=== PATIENT | male | born 1950 | race Hispanic/Latino ===

== ENCOUNTER 2018-01-25 03:22 | Emergency (ER) | payer BC ==
[~2018-01-25] VITALS: Ht 167.6 cm; Wt 81.6 kg
[~2018-01-25 03:22] MED LIST: AMLODIPINE BESYL5 MG PO; LOSARTAN POTAS100 MG PO
[2018-01-25] MEDS ORDERED: ONDANSETRON HCL INJ 2 MG/ML VIAL IV STA (04:02)
[2018-01-25] MEDS ORDERED: KETOROLAC TROMETHAMINE 30 MG/ML VIAL IV STA (04:02)
[2018-01-25] MEDS ORDERED: HYDROCODONE/APAP 10MG-325MG TAB PO STA (04:02)
[2018-01-25 04:23] LABS: BILIRUBIN,URINE NEGATIVE (NEGATIVE); CLARITY,URINE CLEAR (CLEAR); COLOR,URINE YELLOW (YELLOW); KETONES,URINE NEGATIVE (NEGATIVE); LEUKOCYTE ESTERASE ,URINE NEGATIVE (NEGATIVE); NITRITE,URINE NEGATIVE (NEGATIVE); PROTEIN,URINE DIPSTICK NEGATIVE (NEGATIVE); URINE UROBILINOGEN 0.2 mg/dL (0.2 - 1)
[2018-01-25 04:24] LABS: BASOPHILS # (AUTO) 0.1 (0.0-0.1); BASOPHILS % 1.5 % (0.0-1.0); EOSINOPHILS # (AUTO) 0.4 (0.0-0.4); EOSINOPHILS % 4.7 % (0.0-6.0); HEMATOCRIT 47.6 % (38.2-49.6); HEMOGLOBIN 17.2 g/dL (14.0-18.0); LYMPHOCYTES # (AUTO) 3.3 (1.0-3.2); LYMPHOCYTES % 43.7 % (18.0-39.1); MEAN CORPUSCULAR HEMOGLOBIN 33.9 pg (28-32); MEAN CORPUSCULAR HGB CONC 36.1 g/dL (31-35); MEAN CORPUSCULAR VOLUME 93.9 fL (81-99); MONOCYTES # (AUTO) 0.8 (0.2-0.8); MONOCYTES % 10.2 % (4.4-11.3); NEUTROPHILS % 39.8 % (38.7-80.0); PLATELET COUNT 204 x10e3/uL (140-360); RED BLOOD COUNT 5.07 x10e6/uL (4.3-5.7); RED CELL DISTRIBUTION WIDTH 12.4 % (11.7-14.4)
[2018-01-25 04:38] LABS: BACTERIA,URINE RARE /HPF; EPITHELIAL CELLS,URINE RARE /LPF; RBC,URINE 0-5 /HPF (0-5); WBC,URINE (MAN) 0-5 /HPF (0-5)
[2018-01-25 04:42] LABS: ALANINE AMINOTRANSFERASE 46 IU/L (0-55); ALBUMIN 3.7 g/dL (3.5-5.0); ALKALINE PHOSPHATASE 138 IU/L (40-150); ANION GAP 11.8 mmol/L (8-16); BLOOD UREA NITROGEN 19 mg/dL (7-26); BUN/CREATININE RATIO 23 (6-25); CALCIUM 9.2 mg/dL (8.4-10.2); CARBON DIOXIDE 24 mmol/L (22-29); CHLORIDE 105 mmol/L (98-107); CREATININE, SERUM 0.81 mg/dL (0.72-1.25); EST GLOMERULAR FILTRATION RATE > 60 ML/MIN (60-); GLUCOSE 136 mg/dL (74-118); POTASSIUM 3.8 mmol/L (3.5-5.1); SODIUM 137 mmol/L (136-145)
--- NOTE | 2018-01-25 05:52 | Diagnostic Imaging Report ---
SP LUMBAR, COMPLETE MIN 4VW Comparison: None Clinical history: Low back pain with left leg sciatica Findings: There are 5 lumbar type vertebral bodies. Mild multilevel endplate degenerative spurring. Disc space narrowing at L5-S1 with moderate facet arthrosis. Impression: Scattered degenerative changes, worse at L5-S1. Signed by: Dr Harriett Bender MD on 01/25/2018 5:48 AM
[2018-01-25] MEDS ORDERED: NIFEDIPINE 10 MG CAP PO ONE (06:30)
== END 2018-01-25 07:00 | disposition home or self-care (01) ==
LOC: ER 03:22
DX: M54.32 Sciatica, left side (principal); I10 Essential (primary) hypertension
CPT/HCPCS: 36415; 72110; 80053; 81001; 85025; 93005; 99284; J1885; J2405

== ENCOUNTER → 2018-02-10 | Outpatient (CLI) | payer BC ==
--- NOTE | 2018-02-11 07:34 | Diagnostic Imaging Report ---
History: No back pain, radiculopathy on the left leg and hip Comparison studies: None Technique: Sagittal, coronal and axial T2 , sagittal T1 and IR, axial spin density oblique. Intravenous contrast: None Findings: Number of lumbar vertebral bodies:5 Alignment: Normal lordosis.No scoliosis. Soft tissues: No T2 hyperintense inflammatory changes. Paraspinal muscles: No signal abnormalities. No atrophy. Lower thoracic cord:Normal in signal and morphology. The tip of the conus is at T12-L1. Cauda equina: No masses. No arachnoiditis. Vertebrae: Normal in height and signal intensity. No compression fractures, infection or neoplasm. Degenerative changes: Disc degeneration with loss of T2 signal from L2 through S1. L1-L2: No abnormalities. L2-L3: No abnormalities. L3-L4: No abnormalities. L4-L5: Mild diffuse disc bulge mild facet hypertrophy without canal stenosis or significant foraminal narrowing. L5-S1: Diffuse disc bulge with superimposed small left subarticular disc protrusion narrows the left subarticular recess contacting the descending left S1 nerve root without impingement. Grossly patent canal. Mild bilateral facet hypertrophy and left foraminal disc osteophyte complex results in severe left foraminal narrowing with possible impingement of the exiting L5 nerve root. Additional findings: None IMPRESSION: Left foraminal disc osteophyte complex results in severe left foraminal narrowing with impingement on the exiting L5 nerve root. Other degenerative changes as described above without significant canal stenosis or foraminal narrowing. Signed by: DR Samy Huertas M.D. on 02/11/2018 7:30 AM
== END ==
LOC: MRI 16:46
PROVIDERS: ATTEND Family Medicine
DX: M54.16 Radiculopathy, lumbar region (principal)
CPT/HCPCS: 72148